=== PATIENT | male | born 1965 | race Caucasian/White ===

== ENCOUNTER → 2018-01-10 | Outpatient (CLI) | payer OTHER ==
[~2018-01-10] MED LIST: ASPI-757 PO; HYDR-385 PO; KET10 PO; PER PO
--- NOTE | 2018-01-10 15:20 | RADIOLOGY IMAGING REPORT ---
FACILITY: [facility] PATIENT NAME: Barron Piedra : 1965 MR: [id number] V: [id number] EXAM DATE: ORDERING PHYSICIAN: ALLYSON DWYER TECHNOLOGIST: Location: [facility] - [place] Patient: Barron Piedra : 1965 Visit/Account:[id number] Date of Sevice: 01/10/2018 2 VIEWS CHEST INDICATION: Short of breath. Cough. COMPARISON: 10/20/2016 FINDINGS: The lungs are clear. No effusion or pneumothorax is seen. Heart size and mediastinal contours are nor mal. IMPRESSION: 1. No radiographic evidence of active disease. Report Dictated By: Ignacio Waldrop at 01/10/2018 3:12 PM Report E-Signed By: Ignacio Waldrop at 01/10/2018 3:16 PM [id number]
== END ==
LOC: RAD 14:35
PROVIDERS: ATTEND Nurse Practitioner Family
DX: R05 Cough (principal); R06.02 Shortness of breath
CPT/HCPCS: 71046